=== PATIENT | female | born 1995 | race Caucasian/White ===

== ENCOUNTER 2019-08-29 11:06 | Emergency (ER) | payer OTHER, SELFPAY ==
[2019-08-29] VITALS (7 sets, daily range): BP systolic 114–139; BP diastolic 64–95; PULSE 81–150; RESP 18–19; TEMP 36.7; O2SAT 94–100
[2019-08-29] MEDS: SODIUM CHLORIDE 0.9% 1,000 ML 1000 ML IV ×2 (11:43→14:14)
[2019-08-29 11:44] LABS: Add Manual Diff / Slide Review NO; Basophils Absolute Auto 0 /uL (0-100); Basophils Percent Auto 0.4 % (0-2); Eosinophils Absolute Auto 100 /uL (0-450); Eosinophils Percent Auto 0.5 % (2-4); Hematocrit 39.3 % (36-46); Lymphocytes Absolute Auto 2000 /uL (1100-4500); Lymphocytes Percent Auto 19.7 % (25-40); Mean Corpuscular HGB Conc 35.7 % (30-36); Mean Corpuscular Hemoglobin 30.4 PG (26-34); Mean Corpuscular Volume 85.3 fL (80-100); Monocytes Absolute Auto 500 /uL (0-900); Monocytes Percent Auto 4.4 % (3-14); Neutrophils Absolute Auto 7800 /uL (1500-7000); Platelet Count 438 X10^3/uL (150-400); Red Blood Cell Count 4.61 X10^6/uL (4.0-5.2); Red Cell Distribution Width 12.6 % (11.6-14.8); White Blood Cell Count 10.4 X10^3/uL (4.5-11.0)
[2019-08-29 11:51] LABS: BUN Creatinine Ratio 17.1 (6-22); Blood Urea Nitrogen 12 mg/dL (7-17); Calcium 10.1 mg/dL (8.4-10.2); Carbon Dioxide 21 mmol/L (22-32); Chloride 105 mmol/L (98-107); Estimated Glomerular Filt Rate > 60.0 mL/min (>60); Glucose 136 mg/dL (70-100); HEMOLYSIS < 15 (0-50); Sodium 138 mmol/L (137-145)
[2019-08-29 12:08] LABS: HCG Quantitative /Beta subunit < 2.39 mIU/mL
--- NOTE | 2019-08-29 12:30 | DI.US.S_ITS ---
PROCEDURE: US PELVIC COMPLETE INDICATIONS: VAGINAL BLEEDING TECHNIQUE: Real-time scanning was performed of the pelvic organs, with image documentation. Additional endovaginal scanning was necessary due to incomplete visualization of the adnexal and endometrial structures by transabdominal scanning. COMPARISON: None. FINDINGS: Transabdominal scanning: Limited scanning through the kidneys shows no hydronephrosis. No pathologic free abdominal or pelvic fluid. Endovaginal scanning: Uterus: Uterus is normal in size at 7.3 x 3.8 x 4.7 cm. The endometrium measures 3.8 mm in combined thickness. There are multiple ectatic bilateral uterine arteries noted. Ovaries: The right ovary measures 3.3 x 1.8 x 2.0 cm and has normal echotexture. The left ovary measures 3.5 x 1.7 x 1.9 cm and has a normal echotexture. IMPRESSION: 1. Ectatic tortuous bilateral uterine arteries. Findings may be consistent with pelvic congestion syndrome. Please correlate clinically. Otherwise unremarkable pelvic ultrasound. Dictated by: Pattie Shaw M.D. on 08/29/2019 at 12:26 Approved by: Pattie Shaw M.D. on 08/29/2019 at 12:28
--- NOTE | 2019-08-29 12:33 | PC.NURSE ---
pt arrives incontinent of vaginal bleeding through pants down legs to socks. pt c/o dizziness. reports started suddenly today while at work. removed blood saturated clothing, placed on incontinent pad with pad to vaginal area on bed. approx 1 hour later pad and incontinent chux saturated with copious amounts of blood.
--- NOTE | 2019-08-29 13:40 | ED_ITS ---
HPI - Female Genitourinary General Chief complaint: Vaginal Bleeding Stated complaint: bleeding profusely vaginally Time Seen by Provider: 08/29/19 11:31 Source: patient Mode of arrival: Ambulatory Limitations: no limitations History of Present Illness HPI Narrative: Patient comes emergency department complaining of sudden onset of heavy vaginal bleeding that started around 8:00 a.m. this morning. Patient states that she has been on her period for 2 days, and that the bleeding seemed fairly normal. She does note that she had a very light period last month that only lasted 2 days. Patient states that her menses this month was on time. She is not known to be . She states this is never happened to her before. She states that she was just at work doing her normal duties, when she suddenly felt a big gush and blood came down through her pants. Patient states that she began to feel anxious and when she arrived here, her heart was racing. However, she states that she was not feeling lightheaded or faint. No abdominal pain or cramping. No fevers or chills. No dysuria. No other complaints at this time. Patient does not have any bleeding disorders that she knows of and nothing runs in her family. She states that she is not on any anticoagulants. Related Data Home Medications Medication Instructions Recorded Confirmed levonorgestrel-ethinyl estrad 1 tab PO DAILY 08/29/19 08/29/19 [Lutera (28)] Previous Rx's Medication Instructions Recorded medroxyprogesterone See Rx Instructions .ROUTE 08/29/19 .COMPLEX #30 tab Allergies Allergy/AdvReac Type Severity Reaction Status Date / Time No Known Drug Allergies Allergy Verified 08/29/19 11:26 Review of Systems Constitutional Constitutional: Denies chills, Denies fatigue, Denies fever(s), Denies frequent falls, Denies lethargy and Denies weakness Eyes Eyes: Denies change in vision, Denies eye discharge, Denies irritation and Den ies loss of vision ENT Ears, Nose, Mouth, and Throat: Denies change in voice, Denies dizziness, Denies neck pain, Denies sore throat and Denies throat swelling Cardiovascular Cardiovascular: Denies chest pain, Denies irregular heart rhythm, Denies lightheadedness, Denies palpitations, Denies dyspnea, Denies dyspnea on exertion and Denies orthopnea Respiratory Respiratory: Denies cough, Denies dyspnea, Denies dyspnea on exertion and Denies wheezing Gastrointestinal Gastrointestinal: Denies abdominal pain, Denies change in bowel habits, Denies diarrhea, Denies nausea and Denies vomiting Genitourinary Genitourinary: Denies hematuria, Denies flank pain, Denies urinary incontinence and Denies urinary urgency Comments: Vaginal bleeding Musculoskeletal Musculoskeletal: Denies back pain, Denies muscle weakness, Denies neck pain, Denies numbness and Denies tingling Integumentary/Breasts Skin/Breast: Denies pruritus, Denies erythema, Denies rash and Denies wounds Neurologic Neurologic: Denies behavioral changes, Denies confusion, Denies dizziness, Denies frequent falls, Denies loss of vision, Denies numbness, Denies tingling and Denies weakness Psychiatric Psychiatric: Denies anxiety, Denies behavioral changes, Denies confusion, Denies depression, Denies homicidal ideation and Denies suicidal ideation Endocrine Endocrine: Denies fatigue, Denies flushing and Denies palpitations Hematologic/Lymphatic Hematologic/Lymphatic: Denies easy bruising Allergic/Immunologic Allergic/Immunologic: Denies urticaria, Denies throat swelling and Denies wheezing Patient History Medical History Healthy adult (Acute) alcohol intake frequency: 0-2 drinks per day Substance Use Type: does not use Exam Initial Vital Signs Initial Vital Signs: Vital Signs Temperature 98.1 F 08/29/19 11:15 Pulse Rate 150 H 08/29/19 11:15 Respiratory Rate 18 08/29/19 11:15 Blood Pressure 139/95 H 08/29/19 11:15 Pulse Oximetry 94 08/29/19 11:15 Const General: cooperative and well developed Nutritional Appearance: well nourished Orientation: alert, awake, oriented x3 and not confused [facility] Head: normocephalic and atraumatic Ears: external ears normal Nose: external nose normal and No nasal discharge Face and sinus: face symmetric and No dry mucous membranes Mouth: oral mucosae normal and moist mucous membranes Teeth and gingiva: dentition normal Eyes General: appearance normal, both eyes and all related structures Eyelids: eyelids normal Conjunctivae: conjunctivae normal Sclera: sclerae normal Pupils: PERRL EOM: EOM intact bilaterally Neck Neck: normal visual inspection, trachea midline, No lymphadenopathy, No midline deformity and No JVD Lymphatic: No lymphedema Chest Chest: normal inspection of the chest Resp Effort & Inspection: normal respiratory effort, able to speak in complete sentences, no respiratory distress and no use of accessory muscles Auscultation: clear to auscultation bilaterally, no rales, no rhonchi and no wheezes Cardio Rate: regular rate Rhythm: regular rhythm Heart Sounds: no click, no gallops, no murmurs and no rubs Pulses: normal peripheral pulses GI Inspection: non-distended Palpation: soft, no hepatosplenomegaly, No guarding, No pulsatile mass and No tender External Female Exam: external appearance normal and other (No varicosities) Speculum Exam - Vagina: normal appearance of the vagina and vaginal bleeding (Moderate, small clot) Speculum Exam - Cervix: normal appearance of the cervix, closed cervix and normal vervical discharge Bimanual Exam- Vagina & Uterus: normal bimanual exam, normal vaginal palpation, normal cervical palpation and uterine mobility normal OB/External & Speculum: vaginal bleeding (Moderate, small clot) Back/Spine/Pelvis Back: No CVA tenderness Cervical Spine: cervical ROM normal and No pain with cervical ROM Thoracic/Lumbar Spine: thoracic and lumbar spine normal to inspection Skin General: no rashes or lesions noted, No jaundice and No petechiae Neuro General: alert, oriented x3, gait normal and no focal motor deficits Speech: speech normal Extrem General: full ROM, no clubbing, cyanosis or edema, no pedal edema and no calf tenderness Psych Appearance: well kempt Mental Status: mental status grossly normal Attitude: cooperative Thought Content: normal and suicidality Judgment: judgment good Course Course Course Narrative: Patient was very well-appearing in the emergency department, though was noted that her heart rate went up to the 150s while she was ambulating to her room. Heart rate immediately normalized when she sat down on the bed. She was given a total of 2 L of 0.9 normal saline IV. She was worked up with ultrasound, which showed tortuous uterine vasculature, which radiology suggested may be due to pelvic congestion syndrome. However, the patient had no varicosities on exam and no other symptoms or history suggestive of pelvic congestion. Repeat H&H showed the patient is hemoglobin to have dropped by 3 g from the initial level after fluids, and the patient was given a dose of IV tranexamic acid. I spoke with Dr. Beck regarding the patient's case, and she recommended a regimen of medroxyprogesterone and Lutera to be started from the emergency department. She stated that the patient could go home and complete this course. I did re-evaluate the patient, who stated she was feeling better and that her bleeding had slowed down considerably after receiving the tranexamic acid. I discussed with the patient that she should stay local and not go back out on the boat tomorrow as she is scheduled to do, and till she is able to finish her course of medication and follow-up in a week, as Dr. Beck has requested. I've given the patient a work note to this end. Orders Ordered: Discontinued Medications Sodium Chloride (Normal Saline 0.9%) 1,000 mls @ 1,000 mls/hr IV BOLUS ONE Stop: 08/29/19 12:31 Last Infusion: 08/29/19 13:36 Dose: 0 mls/hr Documented by: Admin: 08/29/19 11:43 Dose: 1,000 mls/hr Documented by: EDIS Sodium Chloride (Normal Saline 0.9%) 1,000 mls @ 1,000 mls/hr IV BOLUS ONE Stop: 08/29/19 14:37 Last Infusion: 08/29/19 16:00 Dose: 0 mls/hr Documented by: Admin: 08/29/19 14:14 Dose: 1,000 mls/hr Documented by: EDIS Medroxyprogesterone Acetate (Medroxyprogesterone) 20 mg PO NOW ONE Stop: 08/29/19 15:55 Last Admin: 08/29/19 16:00 Dose: 20 mg Documented by: EDIS Tranexamic Acid (Cyklokapron) 1,000 mg IV NOW ONE Stop: 08/29/19 14:52 Last Admin: 08/29/19 15:05 Dose: 1,000 mg Documented by: EDIS Vital Signs Vital signs: Vital Signs - 8 hr 08/29/19 11:15 08/29/19 12:15 08/29/19 13:38 Temperature 98.1 F Pulse Rate 150 H 90 108 H Respiratory Rate 18 19 18 Blood Pressure 139/95 H Blood Pressure [Right Arm] 114/71 114/64 Pulse Oximetry 94 95 99 MDM - Female Genitourinary Medical Records Attestation: I reviewed the patient's medical records. Lab Data Attestation: I reviewed the patient's lab results. Result diagrams: 08/29/19 15:02 08/29/19 11:25 Labs: Lab Results 08/29/19 08/29/19 08/29/19 Range/Units 11:25 11:25 11:25 WBC 10.4 (4.5-11.0) X10^3/uL RBC 4.61 (4.0-5.2) X10^6/uL Hgb 14.0 (12.0-16.0) g/dL Hct 39.3 (36-46) % MCV 85.3 (80-100) fL MCH 30.4 (26-34) PG MCHC 35.7 (30-36) % RDW 12.6 (11.6-14.8) % Plt Count 438 H (150-400) X10^3/uL Neut % (Auto) 75.0 (50-75) % Lymph % (Auto) 19.7 L (25-40) % Glascock % (Auto) 4.4 (3-14) % Eos % (Auto) 0.5 L (2-4) % Baso % (Auto) 0.4 (0-2) % Neut # (Auto) 7800 H (3131-6038) /uL Lymph # (Auto) 2000 (0102-4826) /uL Glascock # (Auto) 500 (0-900) /uL Eos # (Auto) 100 (0-450) /uL Baso # (Auto) 0 (0-100) /uL Sodium 138 (137-145) mmol/L Potassium 4.0 (3.4-5.1) mmol/L Chloride 105 (98-107) mmol/L Carbon Dioxide 21 L (22-32) mmol/L BUN 12 (7-17) mg/dL Creatinine 0.70 (0.52-1.04) mg/dL Estimated GFR > 60.0 (>60) mL/min BUN/Creatinine Ratio 17.1 (6-22) Glucose 136 H (70-100) mg/dL Calcium 10.1 (8.4-10.2) mg/dL HCG, Quant < 2.39 mIU/mL Blood Type Antibody Screen 08/29/19 08/29/19 Range/Units 11:25 15:02 WBC 7.9 (4.5-11.0) X10^3/uL RBC 3.65 L (4.0-5.2) X10^6/uL Hgb 11.1 L (12.0-16.0) g/dL Hct 31.3 L (36-46) % MCV 85.6 (80-100) fL MCH 30.4 (26-34) PG MCHC 35.5 (30-36) % RDW 12.5 (11.6-14.8) % Plt Count 316 (150-400) X10^3/uL Neut % (Auto) 59.3 (50-75) % Lymph % (Auto) 32.9 (25-40) % [place]ascock % (Auto) 6.5 (3-14) % Eos % (Auto) 0.8 L (2-4) % Baso % (Auto) 0.5 (0-2) % Neut # (Auto) 4700 (5014-4217) /uL Lymph # (Auto) 2600 (5072-2573) /uL Glascock # (Auto) 500 (0-900) /uL Eos # (Auto) 100 (0-450) /uL Baso # (Auto) 0 (0-100) /uL Sodium (137-145) mmol/L Potassium (3.4-5.1) mmol/L Chloride (98-107) mmol/L Carbon Dioxide (22-32) mmol/L BUN (7-17) mg/dL Creatinine (0.52-1.04) mg/dL Estimated GFR (>60) mL/min BUN/Creatinine Ratio (6-22) Glucose (70-100) mg/dL Calcium (8.4-10.2) mg/dL HCG, Quant mIU/mL Blood Type O Negative Antibody Screen Negative Imaging Data US - PRESCHOOL EDUCATION DIRECTOR: Radiologist's Impression: PROCEDURE: US PELVIC COMPLETE INDICATIONS: VAGINAL BLEEDING TECHNIQUE: Real-time scanning was performed of the pelvic organs, with image documentation. Additional endovaginal scanning was necessary due to incomplete visualization of the adnexal and endometrial structures by transabdominal scanning. COMPARISON: None. FINDINGS: Transabdominal scanning: Limited scanning through the kidneys shows no hydronephrosis. No pathologic free abdominal or pelvic fluid. Endovaginal scanning: Uterus: Uterus is normal in size at 7.3 x 3.8 x 4.7 cm. The endometrium measures 3.8 mm in combined thickness. There are multiple ectatic bilateral uterine arteries noted. Ovaries: The right ovary measures 3.3 x 1.8 x 2.0 cm and has normal echotexture. The left ovary measures 3.5 x 1.7 x 1.9 cm and has a normal echotexture. IMPRESSION: 1. Ectatic tortuous bilateral uterine arteries. Findings may be consistent with pelvic congestion syndrome. Please correlate clinically. Otherwise unremarkable pelvic ultrasound. Dictated by: Pattie Shaw M.D. on 08/29/2019 at 12:26 Approved by: Pattie Shaw M.D. on 08/29/2019 at 12:28 Discharge Plan Departure Patient Disposition: Home Clinical Impression: Dysfunctional uterine bleeding Anemia Qualifiers: Anemia type: unspecified type Qualified Code(s): D64.9 - Anemia, unspecified Discharge Date/Time: 08/29/19 16:44 Instructions: DI for Menorrhagia Activity Restrictions/Additional Instructions: Your ultrasound showed enlarged blood vessels in your uterus which are causing the bleeding. To help them cinch down and stop bleeding, you have been started on 2 medications in the emergency department. The on-call bench patternmaker metal, Dr. Beck, has recommended that you take one of these medications, medroxyprogesterone, as follows: 20 mg by mouth every 2 hours until the bleeding stops; then 20 mg every 4 hours for 24 hours; then 20 mg every 6 hours for 24 hours; then 20 mg every 8 hours for 24 hours; then 20 mg every 12 hours for 24 hours; then 1 dose in the next 24 hours. You should call Dr. Beck's office, as listed below, on the day after to set up an appointment to follow-up. Prescriptions: New medroxyprogesterone 10 mg tablet See Rx Instructions .ROUTE .COMPLEX Qty: 30 RF: 0 No Action levonorgestrel-ethinyl estrad [Lutera (28)] 0.1-20 mg-mcg Tablet 1 tab PO DAILY RF: 0 Referrals: Cayla Beck MD [Physician] - Stand Alone Forms: Work Release Note
[2019-08-29] MEDS: TRANEXAMIC ACID 1,000 MG VIAL 1000 MG IV (15:05)
[2019-08-29 15:10] LABS: Add Manual Diff / Slide Review NO; Basophils Absolute Auto 0 /uL (0-100); Basophils Percent Auto 0.5 % (0-2); Eosinophils Absolute Auto 100 /uL (0-450); Eosinophils Percent Auto 0.8 % (2-4); Hematocrit 31.3 % (36-46); Hemoglobin 11.1 g/dL (12.0-16.0); Lymphocytes Absolute Auto 2600 /uL (1100-4500); Lymphocytes Percent Auto 32.9 % (25-40); Mean Corpuscular HGB Conc 35.5 % (30-36); Mean Corpuscular Hemoglobin 30.4 PG (26-34); Mean Corpuscular Volume 85.6 fL (80-100); Monocytes Absolute Auto 500 /uL (0-900); Monocytes Percent Auto 6.5 % (3-14); Neutrophils Absolute Auto 4700 /uL (1500-7000); Neutrophils Percent Auto 59.3 % (50-75); Platelet Count 316 X10^3/uL (150-400); Red Blood Cell Count 3.65 X10^6/uL (4.0-5.2); Red Cell Distribution Width 12.5 % (11.6-14.8); White Blood Cell Count 7.9 X10^3/uL (4.5-11.0)
[2019-08-29] MEDS: MEDROXYPROGESTERONE ACETATE 10 MG TABLET 20 MG PO (16:00)
== END 2019-08-29 16:44 | disposition home or self-care (01) ==
PROVIDERS: Emergency Provider Emergency Medicine
DX: N93.8 Other specified abnormal uterine and vaginal bleeding (principal); D64.9 Anemia, unspecified; R00.0 Tachycardia, unspecified
CPT/HCPCS: 36415; 76830; 76856; 80048; 84702; 85025; 86850; 86900; 86901; 96361; 96374; 99284